=== PATIENT | male | born 1980 | race Caucasian/White ===

== ENCOUNTER 2022-02-04 12:52 | Emergency (ER) | payer MEDICAID, OTHER ==
[~2022-02-04] VITALS: Ht 185.4 cm; Wt 90.7 kg
[2022-02-04 13:02] VITALS: BP 96/58
== END 2022-02-04 16:22 | disposition home or self-care (01) ==
LOC: ER 12:52 → EDBD 12:52 → ER 16:22
DX: F25.9 Schizoaffective disorder, unspecified (principal); F17.210 Nicotine dependence, cigarettes, uncomplicated
CPT/HCPCS: 93005

== ENCOUNTER 2024-07-02 12:46 | Emergency (ER) | payer MEDICAID ==
[~2024-07-02] VITALS: Ht 180.3 cm; Wt 85.0 kg
[2024-07-02 12:50] VITALS: BP 114/75; RESP 20; O2SAT 95
[2024-07-02] MEDS: SODIUM CHLORIDE 0.9% 1,000 ML IV ONE (13:00)
[2024-07-02 13:28] LABS: Basophils # (auto) 0.1 10 ^3/uL (0-0.2); Basophils % (auto) 0.4 % (0.0-2.0); Eosinophils # (auto) 0 10 ^3/uL (0-0.8); Eosinophils % (auto) 0.3 % (0.0-7.0); Lymphocytes # (auto) 1.8 10 ^3/uL (0.4-5.4); Neutrophils # (auto) 10.5 10 ^3/uL (1.6-8.6); Nucleated Red Blood Cells % 0.1 %; White Blood Cell 13.8 10^3/uL (4.4-10.8)
[2024-07-02 13:29] LABS: Hemoglobin 18.6 g/dL (13.5-17.5); Lymphocytes % (auto) 13.4 % (10.0-50.0); Mean Corpuscular Hemoglobin 30.1 pg (28.0-32.0); Mean Corpuscular Hgb Conc. 35.1 g/dL (32.0-36.0); Mean Corpuscular Volume 85.8 fL (80.0-100.0); Monocytes # (auto) 1.3 10 ^3/uL (0-1.3); Monocytes % (auto) 9.6 % (0.0-12.0); Neutrophils % (auto) 76.3 % (37.0-80.0); Platelet Count (auto) 313 10^3/uL (140-450); Red Blood Cells 6.17 10^6/uL (4.5-5.90); Red Cell Distribution Width 14.2 % (11.8-14.3)
[2024-07-02 13:59] VITALS: PULSE 136
[2024-07-02 14:16] LABS: Anion Gap 11 (5-15)
[2024-07-02 14:20] LABS: Calcium 9.4 mg/dL (8.7-10.4)
[2024-07-02 14:21] LABS: Carbon Dioxide 24 mmol/L (20-30); Sodium 139 mmol/L (136-145)
[2024-07-02 14:22] LABS: Chloride 104 mmol/L (98-107); Glucose 197 mg/dL (74-106)
[2024-07-02 14:23] LABS: Blood Alcohol < 3.0 mg/dL (<10)
[2024-07-02 14:27] LABS: BUN/Creatinine Ratio 8.6 (10.0-20.0)
[2024-07-02 14:28] LABS: Blood Urea Nitrogen 19 mg/dL (9-23)
== END 2024-07-02 15:30 | disposition left against medical advice (07) ==
LOC: ER 12:46 → EDBD 12:46 → ER 15:30
DX: F25.9 Schizoaffective disorder, unspecified (principal); E11.9 Type 2 diabetes mellitus without complications; F17.210 Nicotine dependence, cigarettes, uncomplicated
CPT/HCPCS: 36415; 80048; 80320; 85025; 93005; 96360; 99284; J7030